=== PATIENT | female | born 1965 | race Caucasian/White ===

== ENCOUNTER 2021-09-01 11:49 | Outpatient (CLI) | payer BC | END 2021-09-01 11:50 | disposition home or self-care (01) | LOC: SCSRAD 11:49 | PROVIDERS: ATTEND Family Medicine | DX: S90.32XA Contusion of left foot, initial encounter (principal) ==

== ENCOUNTER 2021-12-02 08:17 | Outpatient (CLI) | payer BC | END 2021-12-02 08:18 | disposition home or self-care (01) | LOC: BICMAMMO 08:17 | PROVIDERS: ATTEND Obstetrics & Gynecology | DX: R92.8 Other abnormal and inconclusive findings on diagnostic imaging of breast (principal) | CPT/HCPCS: 77066; G0279 ==